=== PATIENT | male | born 1985 | race Caucasian/White ===

== ENCOUNTER 2018-08-30 13:52 | Emergency (ER) | payer SELFPAY ==
[2018-08-30] MEDS: HYDROCODONE/APAP (5/325) TAB PO (14:28)
[2018-08-30] MEDS: KETOROLAC 60 MG INJ IM (14:28)
== END 2018-08-30 14:31 | disposition home or self-care (01) ==
LOC: FTE 14:31
DX: K08.89 Other specified disorders of teeth and supporting structures (principal)
CPT/HCPCS: 96372; 99284-25